=== PATIENT | male | born 1930 | race Caucasian/White ===

== ENCOUNTER 2017-12-31 17:39 | Emergency (ER) | payer OTHER ==
[~2017-12-31] VITALS: Ht 185.4 cm; Wt 98.0 kg
[~2017-12-31 17:39] MED LIST: ADULT LOW DOSE81 MG PO; ALBUTEROL2.5 MG/0.5 INH; ALBUTEROL2.5 MG/3 M INH; ALDACTONE25 MG; ALDACTONE25 MG PO; ANTIVERT25 MG PO; ASPIRIN325 PO; AUGMENTIN 875875 MG PO; AZITHROMYCIN 2250 MG PO; BACTRIM DS TAB1 EACH PO; BAYER CHEWABLE81 MG PO; CALCIUM; CALCIUM OYS SH1 EACH PO; CALCIUM OYSTER500 MG PO; CARVEDILOL6.25 MG; CITRATE OF MAG296 ML PO; CLARINEX5 MG PO; CLEOCIN HCL150 MG PO; COREG PO; DUONEB 2.5-0.5 M3 ML INH; FEVERALL650 MG RECTAL; FLONASE 0.05%50 MCG NS; FLONASE16 GM IH; HYDROCODON-ACE1 EAC7 PO; HYDROCODONE-AP1 EAC6 PO; K-TAB10 MEQ PO; KEFLEX500 MG PO; KLOR-CON 1010 MEQ PO; LASIX 20 MG TAB20 MG PO; LEVAQUIN 250 M250 MG PO; LEVOTHYROXINE0.05 MG PO; LIPITOR10 MG PO; LISINOPRIL2.5 MG PO; LISINOPRIL5 MG PO; MEDROLDOSEPACK PO; MIRALAX17 GM PO; OMEPRAZOLE40 MG PO; OYSCO-500500 MG PO; PERIDEX15 ML MM; PERIOGARD473 ML; PERIOGARD473 ML PO; PREDNISONE 10 M10 MG PO; PREDNISONE 20 M20 M1 PO; PRILOSEC40 MG PO; PROAIR HFA8.5 GM INH; PROSCAR 5MG TABL5 MG PO; PROVENTIL HFA6.7 G1 INH; SIMVASTATIN40 MG PO; SINGULAIR 10 MG10 M1 PO; TEGRETOL XR200 MG PO; TEGRETOL200 MG; TESSALON PERLE100 MG PO; TOPROL XL25 MG PO; TUMS PO; TUSSIONEX PENNKI1 ML PO; TYLENOL325 MG PO; ZOCOR; ZOCOR 20 MG TAB20 M1 PO; ZOCOR20 MG PO; ZOFRAN ODT4 MG PO; [UNRECOGNIZED DRUG - REMARK]
[2017-12-31 18:14] LABS: ABSOLUTE BASOPHILS 0.1 thou/uL (0.0-0.2); ABSOLUTE EOSINOPHILS 0.1 thou/uL (0.0-0.7); ABSOLUTE LYMPHOCYTES 2.1 thou/uL (0.8-5.3); ABSOLUTE MONOCYTES 0.5 thou/uL (0.0-1.2); ABSOLUTE NEUTROPHILS 6.4 thou/uL (1.6-8.1); BASOPHILS 1.5 %; EOSINOPHILS 1.1 %; HEMATOCRIT 40.4 % (42.0-52.0); HEMOGLOBIN 13.9 gm/dL (14.0-18.0); LYMPHOCYTES 22.3 %; MCH 31.9 pg (26.0-34.0); MCHC 34.4 g/dL (28.0-37.0); MCV 92.6 fL (80.0-100.0); MONOCYTES 5.8 %; MPV 7.7 fl. (7.2-11.1); NUCLEATED RBCS 0 /100WBC; PLATELET COUNT* 232 thou/uL (150-400); POLYS 69.3 %; RBC 4.36 mil/uL (4.50-6.00); RDW-CV 12.9 % (10.5-14.5); WBC 9.3 thou/uL (4.0-11.0)
[2017-12-31 18:31] LABS: APTT 26.8 Seconds (25.0-31.3); PROTIME 10.1 Seconds (9.20-11.50)
[2017-12-31 18:32] LABS: ANION GAP 8 mmol/L (7-16); BUN 17 mg/dL (7-18); CALCIUM 8.5 mg/dL (8.5-10.1); CHLORIDE 103 mmol/L (98-107); CO2 30 mmol/L (21-32); CREATININE 1.7 mg/dL (0.6-1.3); GLUCOSE 147 mg/dL (70-99); POTASSIUM 3.9 mmol/L (3.5-5.1); SODIUM 141 mmol/L (136-145)
[2017-12-31 18:42] LABS: ALBUMIN 3.6 g/dL (3.4-5.0); ALKALINE PHOSPHATASE 177 U/L (46-116); NT-PRO BRAIN NAT PEPTIDE 184 pg/mL (<300); SGOT 17 U/L (15-37); SGPT 18 U/L (30-65); TOTAL BILIRUBIN 0.4 mg/dL (<0.1-1.0); TOTAL PROTEIN 7.5 g/dL (6.4-8.2); TROPONIN-I LEVEL <0.06 ng/mL (<0.06)
[2017-12-31] MEDS ORDERED: ZOFRAN ODT4 MG PO (19:51)
[2017-12-31] MEDS ORDERED: HYDROCODONE-AP1 EAC6 PO (19:53)
[2017-12-31 20:34] VITALS: BP 114/55
--- NOTE | 2018-01-01 14:39 | EKG ---
[place] [address] ELECTROCARDIOGRAM REPORT Name: LARAREBECCA Poole [id number] Admission: 12/31/17 Attend Phys: Discharge: 12/31/17 Date of : 30 Report #: [id number] THIS REPORT FOR: //name// [facility] ED Test Date: 2017-12-31 Test Time: 17:46:16 Pat Name: REBECCA BERMUDEZ Department: Room: Gender: M Modeling Director: Mindi NAJERA : 1930 Requested By: Jakub Sepulveda Order Number: [id number] MD: Jasbir Sanchez Measurements Intervals [place] Rate: 66 P: 59 DC: 204 QRS: 8 QRSD: 167 T: 141 QT: 425 QTc: 446 Interpretive Statements Sinus rhythm Left bundle branch block Compared to ECG 05/05/2017 12:51:40 No significant changes Electronically Signed On 01-01-2018 14:38:54 CNP by Jasbir Sanchez [email or web address] <ELECTRONICALLY SIGNED> By: Jasbir Sanchez MD, [facility] 01/01/18 1438 1746 174 Jasbir Sanchez MD, FACC /EPI
== END 2017-12-31 20:35 | disposition home or self-care (01) ==
LOC: M.ERS 17:39
PROVIDERS: Family Medicine
DX: R07.81 Pleurodynia (principal); K21.9 Gastro-esophageal reflux disease without esophagitis; I25.10 Atherosclerotic heart disease of native coronary artery without angina pectoris; I50.9 Heart failure, unspecified; Z90.49 Acquired absence of other specified parts of digestive tract; Z98.890 Other specified postprocedural states; Z87.891 Personal history of nicotine dependence

== ENCOUNTER 2018-01-25 07:42 | Inpatient (IN) | payer OTHER ==
[~2018-01-25] VITALS: Ht 182.9 cm; Wt 98.0 kg
[2018-01-25 07:44] VITALS: BP 132/66
[2018-01-25] MEDS ORDERED: TOLTERODINE TART2 M1 PO (07:51)
[2018-01-25 08:28] LABS: ANION GAP 10 mmol/L (7-16); APTT 23.3 Seconds (25.0-31.3); BUN 22 mg/dL (7-18); CALCIUM 8.1 mg/dL (8.5-10.1); CHLORIDE 106 mmol/L (98-107); CO2 24 mmol/L (21-32); CREATININE 1.7 mg/dL (0.6-1.3); GLUCOSE 122 mg/dL (70-99); INR 1.1; PROTIME 10.7 Seconds (9.20-11.50); SODIUM 140 mmol/L (136-145)
[2018-01-25 08:38] LABS: INFLUENZA A ANTIGEN None Detected (None Detect); INFLUENZA B ANTIGEN None Detected (None Detect)
[2018-01-25 08:39] LABS: ALBUMIN 3.1 g/dL (3.4-5.0); ALKALINE PHOSPHATASE 161 U/L (46-116); NT-PRO BRAIN NAT PEPTIDE 192 pg/mL (<300); POTASSIUM 4.1 mmol/L (3.5-5.1); SGOT 27 U/L (15-37); SGPT 18 U/L (30-65); TOTAL BILIRUBIN 0.5 mg/dL (<0.1-1.0); TOTAL PROTEIN 6.8 g/dL (6.4-8.2); TROPONIN-I LEVEL <0.06 ng/mL (<0.06)
[2018-01-25 08:46] LABS: HEMATOCRIT 37.4 % (42.0-52.0); HEMOGLOBIN 12.8 gm/dL (14.0-18.0); MCH 31.3 pg (26.0-34.0); MCHC 34.1 g/dL (28.0-37.0); MPV 8.2 fl. (7.2-11.1); NUCLEATED RBCS 0 /100WBC; PLATELET COUNT* 211 thou/uL (150-400); RBC 4.07 mil/uL (4.50-6.00); RDW-CV 12.2 % (10.5-14.5); WBC 13.1 thou/uL (4.0-11.0)
[2018-01-25 08:47] LABS: URINE BILIRUBIN NEGATIVE (Negative); URINE BLOOD 2+ (Negative); URINE CLARITY CLEAR; URINE COLOR YELLOW; URINE GLUCOSE-RANDOM NEGATIVE (Negative); URINE KETONES NEGATIVE (Negative); URINE LEUKOCYTES-REFLEX NEGATIVE (Negative); URINE NITRITE-REFLEX NEGATIVE (Negative); URINE PROTEIN NEGATIVE (Negative); URINE UROBILINOGEN 0.2 E.U./dl (0.2-1.0)
[2018-01-25 08:57] LABS: BACTERIA-REFLEX None Seen /HPF (None Seen); CRYSTALS None Seen /LPF (None Seen); HYALINE CASTS 0-3 Few /LPF (None Seen); MUCUS 4-6 Moderate strn/LPF (None Seen); SQUAMOUS 0-3 Few /LPF (0-3); URINE RBC 0-2 Rare /HPF (0-2); URINE WBC-REFLEX 0-5 Rare /HPF (0-5)
[2018-01-25 09:07] LABS: ABSOLUTE LYMPHOCYTES 0.9 thou/uL (0.8-5.3); ABSOLUTE MONOCYTES 0.5 thou/uL (0.0-1.2); ABSOLUTE NEUTROPHILS 11.7 thou/uL (1.6-8.1); PLATELET ESTIMATE ADEQUATE
[2018-01-25 12:48] VITALS: BP 123/64
[2018-01-25 13:05] VITALS: BP 122/64
[2018-01-25 15:57] VITALS: BP 112/52
--- NOTE | 2018-01-25 18:41 | NUR ---
PATIENT ARRIVED FROM ER THIS AFTERNOON. PATIENT SETTLED O ROOM. HISTORY, ASSESSMENT AND VITALS COMPLETED AND DOCUMENTED. PATIENT HAD COMPLAINTS OF MILD LEFT LUNG PAIN WITH DEEP BREATHING, DENIES NEED FOR MEDICATION. PATIENT IS RECEIVING BREATHING TREATMENTS AND IV STERIODS. PATIENT IS UP STANDBY TO USE URINAL. PATIENT IS TACHY WITH URINAL USAGE. PATIENT HAS EXCELLENT APPETITE. PATIENT IS ALERT AND ORIENTED. PATIENT DENIES ANY NEEDS AT THIS TIME. CALL LIGHT WITHIN REACH. WILL CONTINUE TO MONITOR.
[2018-01-25 20:00] VITALS: BP 111/55
[2018-01-26] VITALS: BP 168/54
[2018-01-26 04:00] VITALS: BP 110/59
--- NOTE | 2018-01-26 04:59 | NUR ---
ASSUMED CARE OF PATIENT AT 1900 THE PATIENT REMAINS SR WITH A BBB ON THE MONITOR O2 SAT IS MAINTAINED ON RA CONTINUES TO BE UP WITH ASSIST OF 1 DURING NIGHT UTILIZED URINAL FOR VOIDING NEEDS THE ROUTINE REGIMEN CONTINUES TO BE EFFECTIVE FOR SX MANAGEMENT PATIENT PROGRESSING TOWARDS GOALS NIGHT UNEVENTFUL SAFETY INTERVENTIONS CONTINUE BED LOWERED WHEELS LOCKED CALL LIGHT IN REACH SIDE RAILS UP REPORT TO BE GIVEN TO ONCANNALISE WARE
[2018-01-26 08:00] VITALS: BP 123/67
[2018-01-26 10:18] LABS: ABSOLUTE BASOPHILS 0.1 thou/uL (0.0-0.2); ABSOLUTE LYMPHOCYTES 0.8 thou/uL (0.8-5.3); ABSOLUTE MONOCYTES 0.3 thou/uL (0.0-1.2); ABSOLUTE NEUTROPHILS 18.5 thou/uL (1.6-8.1); BASOPHILS 0.5 %; HEMATOCRIT 36.4 % (42.0-52.0); HEMOGLOBIN 12.1 gm/dL (14.0-18.0); LYMPHOCYTES 4.1 %; MCH 31.3 pg (26.0-34.0); MCHC 33.3 g/dL (28.0-37.0); MCV 93.9 fL (80.0-100.0); MONOCYTES 1.5 %; MPV 7.5 fl. (7.2-11.1); NUCLEATED RBCS 0 /100WBC; PLATELET COUNT* 234 thou/uL (150-400); POLYS 93.9 %; RBC 3.87 mil/uL (4.50-6.00); RDW-CV 12.7 % (10.5-14.5); WBC 19.7 thou/uL (4.0-11.0)
--- NOTE | 2018-01-26 10:44 | NUR ---
CM SPOKE TO THE PATIENT TO DISCUSS HOME SITUATION, DISCHARGE PLANNING, AND TO INFORM OF THE ROLE OF CM. PATIENT ALERT, BUT FORGEFUL. PATIENT RESIDES AT HOME WITH . PATIENT ASSIST WITH LITE CHORES. PATIENT OWNS A WALKER AND CANE AND USES ONE OR THE OTHER FOR MOBILITY. PATIENT HAS NO HX OF HH OR SNF. PATIENT PLANS TO RETURN HOME AT D/C. CM WILL REMAIN AVAILABLE TO ASSIST AND FOLLOW NEEDED.
--- NOTE | 2018-01-26 11:28 | NUR ---
ASSUMED RESPONSIBILITY OF PT THIS AM PT IS ALERT AND ORIENTED BUT FORGETFUL WITH TIME MOSTLY PT IS NSR TO ST ON THE MONITOR IV TO LFA RUNNING IV ANTIBIOTICS PT IS ON RA LS DIMINISHED WITH EXP WHEEZING AT TIMES PT IS SBA TO BSC PLAN TO DC TOMORROW AFTER LABS AND ANOTHER F/U CXR PT DENIES ANY PAIN CALL LIGHT IN REACH AND USES APPROPRIATELY
[2018-01-26 12:00] VITALS: BP 104/56
[2018-01-26 16:00] VITALS: BP 115/61
--- NOTE | 2018-01-26 16:59 | EKG ---
[place] [address] ELECTROCARDIOGRAM REPORT Name: REBECCA BERMUDEZ Room: [address] ADM IN [facility].#: [id number] Admission: 01/25/18 Attend Phys: Gustavo Dixon, Discharge: Date of : 30 Report #: [id number] THIS REPORT FOR: //name// [facility] ED Test Date: 2018-01-25 Test Time: 07:49:54 Pat Name: REBECCA ELLISRIES Department: Room: [facility] Gender: M Assembler Fluorescent Lights: : 1930 Requested By: Jakub Sepulveda Order Number: [id number] MD: William Diggs Measurements Intervals [place] Rate: 91 P: 68 GA: 213 QRS: -16 QRSD: 161 T: 129 QT: 397 QTc: 489 Interpretive Statements Sinus rhythm Borderline prolonged GA interval Left bundle branch block Compared to ECG 12/31/2017 17:46:16 No significant changes Electronically Signed On 01-26-2018 16:59:14 EXTERNAL AUDITOR by William Diggs [email or web address] <ELECTRONICALLY SIGNED> By: William Diggs MD, [facility] 01/26/18 1659 0749 William Diggs MD, [facility] /EPI
--- NOTE | 2018-01-26 17:00 | NUR ---
I have reviewed the documentation by CONRAD ANDERSEN from 01/26/18 to 01/26/18 and I concur with it. ALEKSANDR GARZA
[2018-01-26 20:00] VITALS: BP 124/65
[2018-01-27 00:23] VITALS: BP 127/58
[2018-01-27 04:33] VITALS: BP 126/70
[2018-01-27 04:54] LABS: ABSOLUTE LYMPHOCYTES 2.5 thou/uL (0.8-5.3); ABSOLUTE MONOCYTES 0.8 thou/uL (0.0-1.2); ABSOLUTE NEUTROPHILS 8.7 thou/uL (1.6-8.1); BASOPHILS 0.3 %; EOSINOPHILS 0.3 %; HEMATOCRIT 31.1 % (42.0-52.0); HEMOGLOBIN 10.7 gm/dL (14.0-18.0); LYMPHOCYTES 20.4 %; MCH 31.7 pg (26.0-34.0); MCHC 34.5 g/dL (28.0-37.0); MCV 91.9 fL (80.0-100.0); MONOCYTES 6.5 %; MPV 7.8 fl. (7.2-11.1); NUCLEATED RBCS 0 /100WBC; PLATELET COUNT* 203 thou/uL (150-400); POLYS 72.5 %; RBC 3.38 mil/uL (4.50-6.00); RDW-CV 12.8 % (10.5-14.5)
[2018-01-27 05:04] LABS: ALBUMIN 2.6 g/dL (3.4-5.0); CREATININE 1.5 mg/dL (0.6-1.3); POTASSIUM 3.8 mmol/L (3.5-5.1); TOTAL BILIRUBIN 0.3 mg/dL (<0.1-1.0); TOTAL PROTEIN 5.7 g/dL (6.4-8.2)
--- NOTE | 2018-01-27 05:31 | NUR ---
PT CARE ASSUMED AFTER REPORT. ASSESSMENT COMPLETE. SR/1ST DEGREE ON MONITOR. DENIES PAIN. FALL PRECAUTIONS IN PLACE INCLUDING BED ALARM. CALL LIGHT IN REACH. BED IN LOWEST POSITION. PROGRESSING TOWARDS GOALS.
[2018-01-27 08:00] VITALS: BP 117/61
[2018-01-27] MEDS ORDERED: CEFPODOXIME PR200 M1 PO (10:44)
[2018-01-27 10:45] VITALS: BP 117/61
--- NOTE | 2018-01-27 12:52 | NUR ---
PT TO BE DISCHARGED HOME WITH SCRIPT FOR ANTIBIOTIC FOR 7 DAYS PT WITHOUT COMPLAINTS UP AD MARIANELA SOA NOTED AND TREMORS NOTED TOO LABS HAVE IMPROVED DTR TO COME PICK PT UP IV DISCONTINUED AND WAITER/WAITRESS ROOM SERVICE
== END 2018-01-27 13:22 | disposition home or self-care (01) | DRG 177 ==
LOC: M.ERS 07:42 → M.2W 09:19 → M.TBA-ER 09:19 → M.2W 13:04
PROVIDERS: Family Medicine; Internal Medicine; ADMIT Family Medicine
DX: J15.6 Pneumonia due to other Gram-negative bacteria (principal); J96.01 Acute respiratory failure with hypoxia; J44.1 Chronic obstructive pulmonary disease with (acute) exacerbation; J44.0 Chronic obstructive pulmonary disease with (acute) lower respiratory infection; N39.0 Urinary tract infection, site not specified; R65.10 Systemic inflammatory response syndrome (SIRS) of non-infectious origin without acute organ dysfunction; N17.9 Acute kidney failure, unspecified; E44.1 Mild protein-calorie malnutrition; N18.3 Chronic kidney disease, stage 3 (moderate); K21.9 Gastro-esophageal reflux disease without esophagitis; R31.9 Hematuria, unspecified; I25.10 Atherosclerotic heart disease of native coronary artery without angina pectoris; I50.9 Heart failure, unspecified; Z90.49 Acquired absence of other specified parts of digestive tract; Z79.899 Other long term (current) drug therapy; Z79.82 Long term (current) use of aspirin; Z87.891 Personal history of nicotine dependence; Z86.73 Personal history of transient ischemic attack (TIA), and cerebral infarction without residual deficits

== ENCOUNTER 2018-01-30 04:14 | Inpatient (IN) | payer OTHER ==
[2018-01-30] VITALS (7 sets, daily range): BP systolic 101–141; BP diastolic 51–84
[~2018-01-30] VITALS: Ht 188 cm; Wt 94.3 kg
[~2018-01-30 04:14] MED LIST changes: +CEFPODOXIME PR200 M1 PO; +TOLTERODINE TART2 M1 PO
[2018-01-30 04:36] LABS: ABSOLUTE BASOPHILS 0.1 thou/uL (0.0-0.2); ABSOLUTE EOSINOPHILS 0.1 thou/uL (0.0-0.7); ABSOLUTE LYMPHOCYTES 1.4 thou/uL (0.8-5.3); ABSOLUTE MONOCYTES 0.5 thou/uL (0.0-1.2); ABSOLUTE NEUTROPHILS 5.9 thou/uL (1.6-8.1); EOSINOPHILS 1.1 %; HEMATOCRIT 36.8 % (42.0-52.0); HEMOGLOBIN 12.8 gm/dL (14.0-18.0); LYMPHOCYTES 17.7 %; MCHC 34.7 g/dL (28.0-37.0); MCV 92.1 fL (80.0-100.0); MONOCYTES 6.9 %; MPV 7.1 fl. (7.2-11.1); NUCLEATED RBCS 0 /100WBC; PLATELET COUNT* 214 thou/uL (150-400); POLYS 73.3 %; RDW-CV 12.5 % (10.5-14.5)
[2018-01-30 04:42] LABS: BE -1.2 mmol/L (-2 to +3); HCO3 21.8 mmol/L (22.0-26.0); PCO2 31.3 mmHg (35.0-45.0); PO2 87.5 mmHg (75.0-100.0)
[2018-01-30 04:43] LABS: CALCIUM 8.1 mg/dL (8.5-10.1); CREATININE 1.7 mg/dL (0.6-1.3); POTASSIUM 4.1 mmol/L (3.5-5.1)
[2018-01-30 04:46] LABS: APTT 29.3 Seconds (25.0-31.3); INR 1.1; PROTIME 10.7 Seconds (9.20-11.50)
[2018-01-30 04:54] LABS: ALBUMIN 3.2 g/dL (3.4-5.0); TOTAL BILIRUBIN 0.5 mg/dL (<0.1-1.0); TOTAL PROTEIN 7.1 g/dL (6.4-8.2); TROPONIN-I LEVEL 0.16 ng/mL (<0.06)
--- NOTE | 2018-01-30 07:00 | NUR ---
RECEIVED REPORT FROM ER. PT SLEEPING SOUNDLY, AWAKENS BUT IMMEDIATELY BACK TO SLEEP. HX OBTAINED FROM PREVIOUS ADMISSION 01/25/18. TELEMETRY APPLIED SHOWING SR. PT IS DIAPHORETIC, TEMP DOWN TO 98.5. O2 ON AT 2L/NC, HAVING OCC MOIST NON PROD COUGH. BUTTOCKS RED FROM LAYING ON ER CART, BLANCHES WELL. REPORT GIVEN TO NEXT SHIFT
[2018-01-30 07:25] LABS: INFLUENZA B ANTIGEN None Detected (None Detect)
--- NOTE | 2018-01-30 16:04 | NUR ---
Pt sound asleep, will assess tomorrow.
--- NOTE | 2018-01-30 16:50 | 2DMMODE ---
[place] [address] 2 D/M-MODE ECHOCARDIOGRAM Name: REBECCA BERMUDEZ Room: [address] IN [facility]#: [id number] Admission: 01/30/18 Attend Phys: Neno Chavez, Discharge: Date of : 30 Date of Service: 01/30/18 1649 Report #: [id number] THIS REPORT FOR: //name// APPROVED REPORT Study performed: 01/30/2018 13:02:28 EXAM: Comprehensive 2D, Doppler, and color-flow Echocardiogram Patient Location: In-Patient Room #: [facility] Status: routine BSA: 2.21 HR: 79 bpm BP: 109/57 mmHg Rhythm: NSR Other Information Study Quality: Good Indications Elevated Troponin 2D Dimensions LVEF(%): 60.21 (>50%) IVSd: 14.85 (7-11mm) LVOT Diam: 21.54 (18-24mm) LVDd: 55.31 mm PWd: 11.93 (7-11mm) Ascending Ao: 35.28 (22-36mm) LVDs: 37.34 (25-40mm) Aortic Root: 34.41 mm Kwong's LVEF: 60.21 % Volumes Left Atrial Volume (Systole) LA ESV Index: 27.30 mL/m2 Aortic Valve AoV Peak Chip.: 1.71 m/s AO Peak Gr.: 11.71 mmHg LVOT Max P.74 mmHg AO Mean Gr.: 6.58 mmHg LVOT Mean P.07 mmHg LVOT Max V: 1.20 m/s AO V2 VTI: 31.69 cm LVOT Mean V: 0.82 m/s MARY ALICE (VTI): 2.59 cm2 LVOT V1 VTI: 22.56 cm Mitral Valve E/A Ratio: 0.74 [place] [address] 2 D/M-MODE ECHOCARDIOGRAM Name: REBECCA BERMUDEZ Room: [address] IN [facility]#: [id number] Admission: 01/30/18 Attend Phys: Neno Chavez, Discharge: Date of : 30 Date of Service: 01/30/18 1649 Report #: [id number] MV Decel. Time: 245.11 ms MV E Max Chip.: 0.59 m/s MV PHT: 71.08 ms MVA (PHT): 3.09 cm2 TDI E/Lateral E': 7.38 E/Medial E': 5.90 Medial E' Chip.: 0.10 m/s Lateral E' Chip.: 0.08 m/s Pulmonary Valve PV Peak Chip.: 1.17 m/s PV Peak Gr.: 5.47 mmHg Tricuspid Valve TR Peak Gr.: 26.98 mmHg RVSP: 32.00 mmHg Left Ventricle The left ventricle is normal size. There is normal LV segmental wall motion. There is normal left ventricular wall thickness. Left ventricular systolic function is normal. The left ventricular ejection fraction is within the normal range. LVEF is 60%. Grade I - abnormal relaxation pattern. Right Ventricle The right ventricle is normal size. The right ventricular systolic function is normal. Atria The left atrium size is normal. The right atrium size is normal. Aortic Valve Mild aortic valve sclerosis. No aortic regurgitation is present. There is no aortic valvular stenosis. Mitral Valve The mitral valve is normal in structure. Trace mitral regurgitation. No evidence of mitral valve stenosis. Tricuspid Valve The tricuspid valve is normal in structure. Mild tricuspid regurgitation. The RVSP is 30-35 mmHg. Pulmonic Valve The pulmonary valve is normal in structure. There is no pulmonic [place] [address] 2 D/M-MODE ECHOCARDIOGRAM Name: REBECCA BERMUDEZ Room: [address]#: [id number] Admission: 01/30/18 Attend Phys: Neno Chavez, Discharge: Date of : 30 Date of Service: 01/30/18 1649 Report #: [id number] Great Vessels The aortic root is normal in size. IVC is normal in size and collapses with >50% inspiration Pericardium There is no pericardial effusion. <Conclusion> The left ventricle is normal size. There is normal left ventricular wall thickness. Left ventricular systolic function is normal. The left ventricular ejection fraction is within the normal range. LVEF is 60%. Grade I - abnormal relaxation pattern. The right ventricle is normal size. The left atrium size is normal. Mild aortic valve sclerosis. No aortic regurgitation is present. There is no aortic valvular stenosis. The mitral valve is normal in structure. Trace mitral regurgitation. The tricuspid valve is normal in structure. Mild tricuspid regurgitation. The RVSP is 30-35 mmHg. IVC is normal in size and collapses with >50% inspiration There is no pericardial effusion. There is normal LV segmental wall motion. <ELECTRONICALLY SIGNED> By: William Diggs MD, FACC 01/30/18 1649 48 48 William Diggs MD, FACC /INF
--- NOTE | 2018-01-30 17:27 | EKG ---
[place] [address] ELECTROCARDIOGRAM REPORT Name: REBECCA BERMUDEZ Room: [address] ADM IN M.R.#: [id number] Admission: 01/30/18 Attend Phys: Neno Chavez MD Discharge: Date of : 30 Report #: [id number] THIS REPORT FOR: //name// [facility] Test Date: 2018-01-30 Test Time: 09:19:54 Pat Name: REBECCA BERMUDEZ Department: Room: [address] Gender: M Recreation Center Director: KYLE : 1930 Requested By: Jakub Sepulveda Order Number: [id number] Sandra MD: William Diggs Measurements Intervals [place] Rate: 72 P: 65 [place]: 198 QRS: -18 QRSD: 168 T: 147 QT: 439 QTc: 481 Interpretive Statements Sinus rhythm Left bundle branch block Compared to ECG 01/25/2018 07:49:54 No significant changes Electronically Signed On 01-30-2018 17:27:31 AIR QUALITY ENGINEER by William Diggs [email or web address] <ELECTRONICALLY SIGNED> By: William Diggs MD, [facility] 01/30/18 1727 8 8 William Diggs MD, [facility] /EPI
--- NOTE | 2018-01-30 17:27 | EKG ---
[place] [address] ELECTROCARDIOGRAM REPORT Name: REBECCA BERMUDEZ Room: [address] ADM IN .R.#: [id number] Admission: 01/30/18 Attend Phys: Neno Chavez MD Discharge: Date of : 30 Report #: [id number] THIS REPORT FOR: //name// [facility] ED Test Date: 2018-01-30 Test Time: 04:19:04 Pat Name: REBECCA BERMUDEZ Department: Room: [facility] Gender: M Powder Hand: 9 : 1930 Requested By: Jakub Sepulveda Order Number: [id number] MD: William Diggs Measurements Intervals [place] Rate: 105 P: 78 NE: 176 QRS: 42 QRSD: 158 T: 154 QT: 358 QTc: 474 Interpretive Statements Sinus tachycardia IVCD, consider atypical LBBB Electronically Signed On 01-30-2018 17:26:57 FOOD STAND MANAGER by William Diggs [email or web address] <ELECTRONICALLY SIGNED> By: William Diggs MD, [facility] 01/30/18 1726 0419 0419 William Diggs MD, FACC /EPI
--- NOTE | 2018-01-30 17:31 | EKG ---
[place] [address] ELECTROCARDIOGRAM REPORT Name: REBECCA BERMUDEZ Room: [address] ADM IN M.R.#: [id number] Admission: 01/30/18 Attend Phys: Neno Chavez MD Discharge: Date of : 30 Report #: [id number] THIS REPORT FOR: //name// [facility] Test Date: 2018-01-30 Test Time: 17:06:42 Pat Name: REBECCA BERMUDEZ Department: Room: [address] Gender: M Water Quality Tester: [facility] : 1930 Requested By: Jakub Sepulveda Order Number: [id number] Sandra MD: William Diggs Measurements Intervals [place] Rate: 82 P: [place]: QRS: -4 QRSD: 174 T: 189 QT: 424 QTc: 496 Interpretive Statements Sinus rhythm at a normal rate Left bundle branch block Electronically Signed On 01-30-2018 17:30:49 LUBRICATION WORKER by William Diggs [email or web address] <ELECTRONICALLY SIGNED> By: William Diggs MD, [facility] 01/30/18 1730 1706 1706 William Diggs MD, FACC /EPI
--- NOTE | 2018-01-30 19:05 | NUR ---
ASSUMED CARE OF PT AT 0730. PT CONTINUES TO BE A&O X4 AND COOPERATIVE. PT VSS AND TRACING NSR ON THE MONITOR. PT DENIES ANY C/O PAIN OR DISTRESS AND HAS BEEN EATING AND DRINKING THROUGH THE DAY EATING GREATER THAN 75% IF MEALS. PT CONTINUES TO HAVE A NONPRODUCTIVE COUGH. PT AMBULATES WITH 1 ASSIST IN ROOM AND VOIDS VIA URINAL. NURSING WILL CONTINUE TO MONITOR.
--- NOTE | 2018-01-30 20:00 | NUR ---
RECEIVED REPORT AND ASSUMED CARE OF PT, ASSESSMENT COMPLETED. HAVING AN OCC MOIST NON-PROD COUGH, HOB ELEVATED, O2 ON AT 1L/NC. VOIDING PER URINAL WITHOUT DIFFICULTY. TELEMETRY ON SHOWING SR WITH BBB. WILL CONT TO MONITOR AND ASSIST NEEDED.
[2018-01-31 00:12] VITALS: BP 101/66
[2018-01-31 04:12] VITALS: BP 123/61
[2018-01-31 04:44] LABS: HEMATOCRIT 32.7 % (42.0-52.0); HEMOGLOBIN 11.5 gm/dL (14.0-18.0); MCH 31.9 pg (26.0-34.0); MCHC 35.1 g/dL (28.0-37.0); MCV 90.8 fL (80.0-100.0); MPV 7.5 fl. (7.2-11.1); RBC 3.6 mil/uL (4.50-6.00); RDW-CV 12.6 % (10.5-14.5); WBC 6.2 thou/uL (4.0-11.0)
[2018-01-31 05:04] LABS: CALCIUM 7.9 mg/dL (8.5-10.1); CREATININE 1.9 mg/dL (0.6-1.3); MAGNESIUM 2.1 mg/dL (1.8-2.4); POTASSIUM 3.8 mmol/L (3.5-5.1)
--- NOTE | 2018-01-31 07:07 | NUR ---
AWAKE OCC DURING NIGHT. ABD DISTENDED AND STATES HAVING DIFFICULTY WITH VOIDING. DISCUSSED LAXATIVES TODAY. HAVING OCC MOIST NON-PRODUCTIVE COUGH. NO CHANGE IN ASSESSMENT. ADVANCING TOWARDS GOALS. HOURLY ROUNDING OBSERVED.
[2018-01-31 08:15] VITALS: BP 122/69
[2018-01-31 16:00] VITALS: BP 99/56
--- NOTE | 2018-01-31 19:00 | NUR ---
ASSUMED CARE OF PT AT 0730. PT CONTINUES TO BE A&O X4 CALM AND COOPERATIVE BU FORGETFUL AT TIMES. HIS HR INCREASED TO THE 160'S TODAY AND CARDIOLOGY WAS RECONSULTED. CARDIOLOGY SAW PT AND EKG WAS PREFORMED. JAVA APPLICATION DEVELOPER ORDERE SOTALOL PO, AFTER ADMINISTRATION PT HR HAS BEEN IN THE 90'S TO LOW 100'S FOR THE REMAINDER OF THE SHIFT. PT HAS BEEN VOIDING VIA URINAL AND BP HAS BEEN STABLE. PT C/O "FEELING BAD" AND HAS VERY WET AND COARSE LUNG SOUNDS. PT HAS O2 AT 2L VIA NC AND SATS HAVE MAINTAINED GREATER THAN 95% TODAY. PT REFUSED DINNER AND LUNCH. ADEQUATE FLUID INTAKE HAS BEEN ENCOURAGED AND THE PT HAS BEEN OFFERED A VARIETY OF FOODS AND DRINKS THROUGH THE SHIFT. PT CURRENTLY RESTING IN BED WATCHING TVE WITH HOB ELEVATED TO 80% AND HE HAS HAD NO C/O PAIN.
[2018-01-31 21:04] VITALS: BP 106/55
[2018-02-01] VITALS (24 sets, daily range): BP systolic 75–114; BP diastolic 43–71
[2018-02-01 05:00] LABS: BE -2.6 mmol/L (-2 to +3); HCO3 20.2 mmol/L (22.0-26.0); PCO2 29.5 mmHg (35.0-45.0); pH 7.453 (7.340-7.450)
[2018-02-01 05:01] LABS: PO2 59.9 mmHg (75.0-100.0)
[2018-02-01 05:22] LABS: HEMOGLOBIN 13.2 gm/dL (14.0-18.0); MCH 31.5 pg (26.0-34.0); MCHC 33.9 g/dL (28.0-37.0); MCV 92.9 fL (80.0-100.0); MPV 7.7 fl. (7.2-11.1); NUCLEATED RBCS 0 /100WBC; PLATELET COUNT* 222 thou/uL (150-400); RDW-CV 13.2 % (10.5-14.5); WBC 9.7 thou/uL (4.0-11.0)
[2018-02-01 05:29] LABS: CREATININE 1.9 mg/dL (0.6-1.3); MAGNESIUM 2.3 mg/dL (1.8-2.4); POTASSIUM 5.1 mmol/L (3.5-5.1)
[2018-02-01 06:03] LABS: BE -2.7 mmol/L (-2 to +3); HCO3 20.2 mmol/L (22.0-26.0); PCO2 30.2 mmHg (35.0-45.0); PO2 99.2 mmHg (75.0-100.0); pH 7.444 (7.340-7.450)
[2018-02-01 06:25] LABS: ABSOLUTE BASOPHILS 0.1 thou/uL (0.0-0.2); ABSOLUTE LYMPHOCYTES 0.8 thou/uL (0.8-5.3); ABSOLUTE MONOCYTES 0.6 thou/uL (0.0-1.2); ABSOLUTE NEUTROPHILS 8.2 thou/uL (1.6-8.1); PLATELET ESTIMATE ADEQUATE
--- NOTE | 2018-02-01 07:52 | NUR ---
Pt had been restful with VSS up until 0400 this morning. Pt found to be shivering, and having labored respirations. SaO2 86-93% on 2L. O2 increased to 6L per NC. ABGs revealed PO2 critically low; pt placed on NRB mask. SaO2 up to upper 90s on NRB. Pt continues to have labored resps, RR upper 30s. States that it "may be time to let me go." Dr. Dixon updated on pt's status, orders received. IVF and IV antibiotics initiated. Pt also continues to have distended and round abd, and no BM for at least a few days. Pt assisted to BSC to attempt BM, but no results. Pt weak, and disoriented at times. Pulls NRB off intermittently, stating it makes him hot. Updated pt's son this morning of pt's status. Son states he will tell his family and be up to visit later. Will continue to monitor.
[2018-02-01 11:21] LABS: BE -3.8 mmol/L (-2 to +3); HCO3 20.7 mmol/L (22.0-26.0); PCO2 35.7 mmHg (35.0-45.0); PO2 77.8 mmHg (75.0-100.0); pH 7.381 (7.340-7.450)
[2018-02-01 11:25] LABS: HEMATOCRIT 37.7 % (42.0-52.0); HEMOGLOBIN 12.7 gm/dL (14.0-18.0); MCH 31.2 pg (26.0-34.0); MCHC 33.8 g/dL (28.0-37.0); MCV 92.6 fL (80.0-100.0); MPV 7.8 fl. (7.2-11.1); RBC 4.08 mil/uL (4.50-6.00); RDW-CV 12.9 % (10.5-14.5); WBC 18.9 thou/uL (4.0-11.0)
[2018-02-01 11:39] LABS: ALBUMIN 2.9 g/dL (3.4-5.0); CALCIUM 7.9 mg/dL (8.5-10.1); CREATININE 2.3 mg/dL (0.6-1.3); TOTAL BILIRUBIN 0.5 mg/dL (<0.1-1.0)
--- NOTE | 2018-02-01 11:57 | NUR ---
1130 RECEIVED PER BED FROM TELEMETRY POST PHYSICAL SECURITY SPECIALIST CALL. SEE ASSESSMENT. FAMILY HERE AND WANT PATIENT TO BE COMFORTABLE
--- NOTE | 2018-02-01 12:06 | NUR ---
TEMPERATURE MEMBRENO IN PLACE. PT ROUSABLE NOW AND FAMILY PRESENT. FAMILY DOES NOT WANT CENTRAL LINE OR PRESSORS. WAITING FOR SPOUSE TO COME
--- NOTE | 2018-02-01 12:16 | NUR ---
SPOUSE AND FAMILY AT BEDSIDE
--- NOTE | 2018-02-01 12:22 | EKG ---
[place] [address] ELECTROCARDIOGRAM REPORT Name: REBECCA BERMUDEZ Room: [address] ADM IN M.R.#: [id number] Admission: 01/30/18 Attend Phys: Neno Chavez MD Discharge: Date of : 30 Report #: [id number] THIS REPORT FOR: //name// [facility] Test Date: 2018-01-31 Test Time: 10:01:24 Pat Name: REBECCA BERMUDEZ Department: Room: [facility] Gender: M Utility Operator: KF : 1930 Requested By: Kennedy Bowden Order Number: [id number] Sandra MD: Kennedy Bowden Measurements Intervals [place] Rate: 153 P: 0 CT: 124 QRS: -25 QRSD: 155 T: 171 QT: 312 QTc: 498 Interpretive Statements Atrial fibrillation with rapid ventricular response rate Left bundle-branch block Baseline wander in lead(s) II,III,aVF Compared to ECG 01/30/2018 17:06:42 Sinus rhythm no longer present Electronically Signed On 02-01-2018 12:22:15 HEAT SEAL OPERATOR by Kennedy Bowden [email or web address] <ELECTRONICALLY SIGNED> By: Kennedy Bowden MD, FACC 02/01/18 1222 1001 1001 Kennedy Bowden MD, [facility] /EPI
--- NOTE | 2018-02-01 12:28 | EKG ---
[place] [address] ELECTROCARDIOGRAM REPORT Name: REBECCA BERMUDEZ Room: [address] ADM IN .R.#: [id number] Admission: 01/30/18 Attend Phys: Neno Chavez MD Discharge: Date of : 30 Report #: [id number] THIS REPORT FOR: //name// [facility] Test Date: 2018-02-01 Test Time: 08:03:09 Pat Name: REBECCA BERMUDEZ Department: Room: [facility] Gender: M Graves Registration Specialist: 27 : 1930 Requested By: Kennedy Bowden Order Number: [id number] Sandra MD: Kennedy Bowden Measurements Intervals [place] Rate: 85 P: 82 [place]: 186 QRS: 12 QRSD: 153 T: 167 QT: 402 QTc: 478 Interpretive Statements Sinus rhythm Left bundle branch block Compared to ECG 01/30/2018 17:06:42 No significant changes Electronically Signed On 02-01-2018 12:28:17 PIERCER OPERATOR by Kennedy Bowden [email or web address] <ELECTRONICALLY SIGNED> By: Kennedy Bowden MD, [facility] 02/01/18 1228 D: [id number] 2 Kennedy Bowden MD, FACC /EPI
--- NOTE | 2018-02-01 12:30 | NUR ---
SPOUSE TO BEDSIDE. FAMILY REFUSES ACCUCHECKS. OXYGEN AT 10LPM HIGH FLOW WITH SAT OF 93%
--- NOTE | 2018-02-01 14:16 | NUR ---
CHEST FILM DONE. PT INCONTINENT OF LARGE STOOL
--- NOTE | 2018-02-01 16:12 | NUR ---
DR ROSA HERE TO SEE PATIENT. DR BENITO UPDATED ON PATIENT STATUS AND ORDERS NOTED
--- NOTE | 2018-02-01 17:08 | NUR ---
PATIENT CAME TO ICU POST SENIOR CHEMIST CALL FOR UNRESPONSIVENESS AND HYPOTENSION. PT IS DNR. PT AROUSABLE AND ORIENTED TO PERSON/SOMETIMES PLACE. STILL HAS SOME HYPOTENSION. SINUS LAVONNE WITH BBB. TEMPERATURE MEMBRENO PLACED. ID CONSULTED AND SAW PATIENT. PATIENT IS POSITIVE FOR FLU AND IN DROPLET PRECAUTIONS. SPOUSE NOW ALSO HAS THAT DIAGNOSIS AND DID VISIT PATIENT. DPOA AND SPOUSE DO NOT WANT PT RESUSCITATED AND DECLINED CENTRAL LINE AND PRESSORS. FAMILY ALSO REFUSED ACCUCHECKS. PRIOR PROBLEM WITH CONSTIPATION IS RESOLVED.
--- NOTE | 2018-02-01 18:14 | NUR ---
PATIENT DID NOT WANT TO EAT DINNER. VERY DROWSY AT THIS TIME. DAUGHTER PRESENT
[2018-02-02] VITALS (10 sets, daily range): BP systolic 84–131; BP diastolic 52–74
[2018-02-02 05:28] LABS: HEMATOCRIT 31.5 % (42.0-52.0); HEMOGLOBIN 11.1 gm/dL (14.0-18.0); MCH 32.1 pg (26.0-34.0); MCHC 35.1 g/dL (28.0-37.0); MCV 91.3 fL (80.0-100.0); MPV 7.7 fl. (7.2-11.1); RBC 3.45 mil/uL (4.50-6.00); WBC 9.7 thou/uL (4.0-11.0)
[2018-02-02 05:30] LABS: URINE BILIRUBIN NEGATIVE (Negative); URINE BLOOD 3+ (Negative); URINE CLARITY CLEAR; URINE COLOR YELLOW; URINE GLUCOSE-RANDOM NEGATIVE (Negative); URINE KETONES 1+ (Negative); URINE LEUKOCYTES-REFLEX NEGATIVE (Negative); URINE NITRITE-REFLEX NEGATIVE (Negative); URINE PROTEIN 1+ (Negative); URINE SPECIFIC GRAVITY 1.025 (1.005-1.030); URINE UROBILINOGEN 0.2 E.U./dl (0.2-1.0)
[2018-02-02 05:40] LABS: BACTERIA-REFLEX 1-9 Few /HPF (None Seen); MUCUS 4-6 Moderate strn/LPF (None Seen); SQUAMOUS 0-3 Few /LPF (0-3); URINE WBC-REFLEX 0-5 Rare /HPF (0-5)
[2018-02-02 05:41] LABS: CASTS None Seen /LPF (None Seen)
[2018-02-02 05:42] LABS: URIC ACID CRYSTALS 0-3 Few /LPF (None Seen)
[2018-02-02 05:46] LABS: CALCIUM 7.3 mg/dL (8.5-10.1); POTASSIUM 4.7 mmol/L (3.5-5.1)
--- NOTE | 2018-02-02 07:36 | NUR ---
PROGRESSING TOWARD GOALS. AT START OF SHIFT PT WAS MINIMALLY RESPONSIVE TO STIMULI, HOWEVER BY APPROXIMATELY 2200 PT WAS ALERT AND ORIENTED X4, CONVERSING APPROPRIATELY AND FOLLOWING COMMANDS. PT SLEPT WELL THROUGHT THE NIGHT. HE HAS DENIED CHEST PAIN, SOA, AND ANY OTHER DISCOMFORT. PERSISTENT DRY COUGH. VSS. PT HAD MODERATE LOOSE BM THIS AM VIA BEDPAN. IVF INFUSING ORDERED. CALL LIGHT WITHIN REACH.
--- NOTE | 2018-02-02 09:32 | NUR ---
PATIENT IS NOW TELE STATUS.
--- NOTE | 2018-02-02 10:19 | EKG ---
[place] [address] ELECTROCARDIOGRAM REPORT Name: REBECCA BERMUDEZ Room: [address] ADM IN .R.#: [id number] Admission: 01/30/18 Attend Phys: Neno Chavez MD Discharge: Date of : 30 Report #: [id number] THIS REPORT FOR: //name// [facility] Test Date: 2018-02-01 Test Time: 11:07:17 Pat Name: REBECCA BERMUDEZ Department: Room: [facility] Gender: M Glassie: UNK : 1930 Requested By: Juan Manuel Vargas Order Number: [id number] Sandra MD: Jasbir Sanchez Measurements Intervals [place] Rate: 67 P: 79 [place]: 194 QRS: -18 QRSD: 166 T: 174 QT: 475 QTc: 502 Interpretive Statements Sinus rhythm Left bundle branch block Compared to ECG 02/01/2018 08:03:09 No significant changes Electronically Signed On 02-02-2018 10:19:17 REGULATORY LEADER by Jasbir Sanchez [email or web address] <ELECTRONICALLY SIGNED> By: Jasbir Sanchez MD, [facility] 02/02/18 1019 06 06 Jasbir Sanchez MD, FACC /EPI
--- NOTE | 2018-02-02 10:29 | EKG ---
[place] [address] ELECTROCARDIOGRAM REPORT Name: REBECCA BERMUDEZ Room: [address] ADM IN .R.#: [id number] Admission: 01/30/18 Attend Phys: Neno Chavez MD Discharge: Date of : 30 Report #: [id number] THIS REPORT FOR: //name// [facility] Test Date: 2018-02-02 Test Time: 07:52:54 Pat Name: REBECCA BERMUDEZ Department: Room: [facility] Gender: M Customer Assistance Representative: [facility] : 1930 Requested By: Kenneyd Bowden Order Number: [id number] Sandra MD: Jasbir Sanchez Measurements Intervals [place] Rate: 55 P: 73 MD: 209 QRS: -3 QRSD: 169 T: 164 QT: 509 QTc: 487 Interpretive Statements Sinus rhythm Left bundle branch block Compared to ECG 02/01/2018 08:03:09 No significant changes Electronically Signed On 02-02-2018 10:29:12 SHIPPING SUPPORT by Jasbir Sanchez [email or web address] <ELECTRONICALLY SIGNED> By: Jasbir Sanchez MD, [facility] 02/02/18 1029 0752 075 Jasbir Sanchez MD, FACC /EPI
--- NOTE | 2018-02-02 10:42 | NUR ---
PT KNOWN TO CASE KELIN FROM PREVIOUS ADMISSION. PT HAS SOME FORGETFULLNESS, LIVES AT HOME WITH HIS . HE HELPS SOME WITH OPTICIAN APPRENTICE DISPENSING. HE HAS A CANE AND WALKER AT HOME IF NEEDED. NO FAMILY HERE AT THIS TIME, CASE KELIN WILL CONTINUE TO FOLLOW.
--- NOTE | 2018-02-02 14:12 | NUR ---
PATIENT GOING TO ROOM 211 WITH NURSING STAFF. BY WHEELCHAIR. CHART AND MEDICATIONS TAKEN WITH PATIENT.
--- NOTE | 2018-02-02 17:13 | NUR ---
PATIENT HAS PROGRESSED WELL TOWARDS GOALS. CATHETER D/C, SOME BLOODY DISCHARGE WHICH IS STARTING TO LIGHTEN UP WITH EACH URINATION. PATIENT HAS SUCCESSFULLY GOT UP TO COMMODE AND TRANSFERED TO WHEELCHAIR TODAY WITH STAND BY ASSIST. FAMILY HAS VISITED MULTIPLE TIMES TODAY. NO PAIN, NAUSEA OR SHORTNESS OF BREATH. WEANED DOWN TO 2 LITERS NASAL CANULA. BED IN LOWEST POSITION CALL LIGHT IN REACH, BED ALARM ON, FALL PREACUATIONS IN PLACE.
[2018-02-03 00:10] VITALS: BP 105/50
[2018-02-03 04:00] VITALS: BP 110/52
[2018-02-03 05:09] LABS: HEMATOCRIT 31.7 % (42.0-52.0); HEMOGLOBIN 11.2 gm/dL (14.0-18.0); MCH 31.7 pg (26.0-34.0); MCHC 35.2 g/dL (28.0-37.0); MCV 90.1 fL (80.0-100.0); MPV 7.8 fl. (7.2-11.1); RBC 3.52 mil/uL (4.50-6.00); RDW-CV 12.7 % (10.5-14.5); WBC 12.7 thou/uL (4.0-11.0)
--- NOTE | 2018-02-03 05:15 | NUR ---
PT IS ABLE TO COMMUNICATE HIS NEEDS TO STAFF WITH ONLY MINOR DIFFICULTY; HE IS VERY [id number]. HE HAS DENIED THE NEED FOR PAIN MEDICATION UP TO THIS TIME. DROPLET ISOLATION FOR POSITIVE FLU SWAB MAINTAINED. CODE STATUS IS DNR.
[2018-02-03 05:36] LABS: CALCIUM 7.2 mg/dL (8.5-10.1); CREATININE 1.8 mg/dL (0.6-1.3); POTASSIUM 4.6 mmol/L (3.5-5.1)
[2018-02-03 08:22] VITALS: BP 114/72
--- NOTE | 2018-02-03 10:14 | NUR ---
ASSUMED CARE OF PT THIS AM AROUND 0715- HOTEL OFFICE MANAGER IN PLACE ORDERED, TRACING SB WITH BBB- UPON ASSESSMENT PT NOTED TO BE RESTING IN BED, WATCHING TV- PT A&O X3 WITH FORGETFULLNESS, [place]- ASSIST X1 WITH TRANSFERS- CONTINENTN OF BOWEL AND BLADDER, STRESS INCONTINENTS NOTED- VSS, O2 SAT 92% ON 2L- COURSE LUNG SOUNDS, COUGHT NOTED WITH WHITE STICKY SUTUM REPORTED PE PT- ABDOMEN FIRM/ROUND/NON-TENDER, BS X4 QUADS- LAST BM REPORTED 02/02/18- TRACE EDEMA NOED TO BLE- DROPLET ISOLOATION IN PLACE AND MAINTAINED INDICATED R/T POSTIVE FLU- IV NOTED TO RIGHT FA AND LEFT AC INTACT AND SL- GOOD PO INTAKE NOTED THIS AM WITH BREAKFAST- PT DENIES ANY C/O PAIN/DISCOMFORT AT THIS TIME- CALL LIGHT AND PERSONAL BELONGINGS WITH IN REACH- HOURLY ROUNDS IN PLACE R/T SAFETY/NEEDS- ALL NEEDS MET AT THIS TIME-WCTM
[2018-02-03 11:15] VITALS: BP 136/78
--- NOTE | 2018-02-03 12:57 | EKG ---
[place] [address] ELECTROCARDIOGRAM REPORT Name: REBECCA BERMUDEZ Room: [address] ADM IN R.#: [id number] Admission: 01/30/18 Attend Phys: Neno Chavez MD Discharge: Date of : 30 Report #: [id number] THIS REPORT FOR: //name// [facility] Test Date: 2018-02-03 Test Time: 08:42:06 Pat Name: REBECCA BERMUDEZ Department: Room: [facility] Gender: M Microsoft Dynamics Manager Architect: : 1930 Requested By: Kennedy Bowden Order Number: [id number] MD: Jasbir Sanchez Measurements Intervals [place] Rate: 55 P: 72 LA: 200 QRS: -7 QRSD: 174 T: 165 QT: 484 QTc: 463 Interpretive Statements Sinus bradycardia Left bundle branch block Compared to ECG 02/02/2018 07:52:54 No significant changes Electronically Signed On 02-03-2018 12:57:18 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
--- NOTE | 2018-02-03 14:28 | NUR ---
THIS RN AGREES WITH THE ASSESSMENT BY JEF BRICENO
[2018-02-03 16:11] VITALS: BP 154/67
--- NOTE | 2018-02-03 17:24 | NUR ---
PT CURRENLTY RESTING IN BED, FAMILY AT SIDE VISITING- FERTILIZER PROCESSING SUPERVISOR IN PLACE ORDERED, TACING SB- IV NOTED TO RIGHT FA AND LEFT AC INTACT AND SL- IV ABT GIVEN THIS SHIFT PRESCIBED, NO ADVERSE REACTIONS TO NOTE- PT ENCOURAGED TO BE UP TO BED SIDE CHAIR THIS SHIFT WIH MEALS- REFUSED BREAKFAST AND LUNCH, GOOD PO INTAKE NOTED WITH DINNER- UP FOR LONG PERIOD THIS AFTERNOON TO CHAIR VISTING WITH FRIEND, TOLERATED WELL- WORKING WITH PT/OT PRESCIBED- PT NOTED TO HAVE INCONTINENT EPISODES THIS SHIFT- DENEIS ANY C/O PAIN/DISCOMFORT AT THIS TIME- CALL LIGHT AND PERSONAL BELONGINGS WITH IN REACH- ALL NEEDS MET AT THIS TIME-WCTM
[2018-02-03 20:00] VITALS: BP 133/70
[2018-02-04] VITALS: BP 120/57
--- NOTE | 2018-02-04 01:02 | NUR ---
ALERT AND ORIENTED X 4, CONT. O2 NC AT 2 LITERS. IV ABX WITHOUT ADVERSE REACTION. BED IN LOW POSITION, CALL LIGHT IN REACH, BED ALARM ON. DENIES PAIN OR DISCOMFORT. NO SIGN OF DISTRESS. CONT. WITH PLAN OF CARE.
[2018-02-04 04:00] VITALS: BP 119/66
[2018-02-04 05:11] LABS: HEMATOCRIT 31.8 % (42.0-52.0); MCH 31.6 pg (26.0-34.0); MCHC 34.6 g/dL (28.0-37.0); MCV 91.2 fL (80.0-100.0); MPV 7.9 fl. (7.2-11.1); RBC 3.49 mil/uL (4.50-6.00); RDW-CV 12.5 % (10.5-14.5); WBC 9.6 thou/uL (4.0-11.0)
[2018-02-04 05:41] LABS: CALCIUM 7.5 mg/dL (8.5-10.1); CREATININE 1.4 mg/dL (0.6-1.3); POTASSIUM 4.8 mmol/L (3.5-5.1)
[2018-02-04 07:44] VITALS: BP 136/69
--- NOTE | 2018-02-04 09:16 | NUR ---
ASSUMED CARE OF PT THIS AM AROUND 07- PREFLIGHT INSPECTOR IN PLACE ORDERED, TRACING SB WITH BBB- UPON ASSESSMENT PT NOTED TO BE RESTING IN BED- PT A&O X4, FORGETFULLNESS NOTED- CONTINENT VS INCONTINENT OF BOWEL AND BLADDER WITH STRESS INCONTINENTS NOTED-COURSE LUNG SOUNDS WITH EXPIRATORY WHEEZES NOTED- RESP EVEN AND UN-LABORED- DYSPNEA NOTED ON EXERTION- VSS, O2 SAT 96% ON 2L VIA NC-ABDOMEN SOFT/ROUND/NON-TENDER, BS HYPOACTIVE- LAST BM REPORTED X2 DAYS AGO- SCHEDULED SENNA GIVEN PRESCIBED THIS AM- IV NOTED TO LEFT AC AND RIGHT FA INTACT AND SL- PT UP TO BED SIDE CHAIR THIS AM, FAIR PO INTAKE NOTED THIS AM WITH BREAKFAST- ISOLATION IN PLACE AND MAINTAINED R/T POSITIVE FLU- PT DENIES ANY C/O PAIN/DISCOMFORT AT THIS TIME- CALL LIGHT AND PERSONAL BELONGINGS WITH IN REACH- HOURLY ROUNDS IN PLACE R/T SAFETY/NEEDS- ALL NEEDS MET AT THIS TIME-WCTM
--- NOTE | 2018-02-04 10:00 | NUR ---
This RN agrees with the assessment of SN. Sher
[2018-02-04 11:38] VITALS: BP 154/84
[2018-02-04 15:27] VITALS: BP 140/83
--- NOTE | 2018-02-04 18:05 | NUR ---
PT CURRENLTY RESTING IN BED- LITIGATION PARTNER IN PLACE ORDERED, TRACING SB/SR WITH BBB- IV TO RIGHT FA AND LEFT AC INTACT AND SL- PT UP TO CHAIR WITH MEALS THIS SHIFT, GOOD PO INTAKE NOTED- WORKING WITH THERAPIES PRESCIBED, UP WALKING HALLS- DYSPNEA NOTED- IV ABT D/C'D THIS SHIFT WITH PO AMOX/CLAV STARTED AND GIVEN THIS SHIFT PRESCIBED- RT ORDER NOTED FOR OVERNIGHT OXIMETRY- PT C/O OF SWELLING NOTED TO UPPER RIGHT GROIN REGION- LUMP NOTED WITH PALPATION WITH NO PAIN REPORTED- NOTIFED WITH ORDERS RECIVED FOR US TO BE COMPLETED- US TO AREA COMPLETED THIS SHIFT, RESULTS REPORTED TO BE UNREMARKABLE- PT DENIES ANY C/O PAIN/DISCOMFORT AT THIS TIME- CALL LIGHT AND PERSOANL BELONGINGS WITH IN REACH- ALL NEEDS MET AT THIS TIME-[facility]
[2018-02-05 00:01] VITALS: BP 127/70
[2018-02-05 04:09] VITALS: BP 115/67
--- NOTE | 2018-02-05 06:10 | NUR ---
A&O X4 CALM COOPERITVE. X1 ASSIST TO GET UP. PT O2 STUDY PT WAS ON RA ALL NIGHT. SB BBB ON THE MONITOR. NO FLUIDS. DENIES PAIN. VITALS WNL. HOURLY ROUNDING FOR SAFETY.
[2018-02-05 07:51] VITALS: BP 144/69
[2018-02-05] MEDS ORDERED: SENNA-DOCUSATE1 EACH PO (09:27)
[2018-02-05] MEDS ORDERED: PREDNISONE 10 M10 MG PO (09:27)
[2018-02-05] MEDS ORDERED: MUCINEX600 MG PO (09:27)
[2018-02-05] MEDS ORDERED: SORINE 80 MG TA80 M1 PO (09:27)
[2018-02-05] MEDS ORDERED: AUGMENTIN 875-1 EACH PO (09:27)
[2018-02-05] MEDS ORDERED: VENTOLIN HFA 1818 GM INH (09:27)
--- NOTE | 2018-02-05 09:36 | NUR ---
ASSUMED CARE OF PT THIS AM AROUND 0715- AUTO BATTERY BUILDER IN PLACE ORDERED, TRACING SB WITH BBB- UPON ASSESSMENT PT NOTED TO BE RESTING IN BED- PT A&O X3 WITH FORGETFULLNESS- CONTINENT VS INCONTINENT OF BOWEL AND BLADDER, OCCASIONAL STRESS INCONTINENT NOTED- COURSE LUNG SOUNDS, EXPIRATORY WHEEZE-COUGH NOTED- VSS, O2 SAT 935 ON RA- DYSNEA NOTED ON EXERTION- ABDOMEN FIRM/ROUND/NON-TENDER, BS X4 HYPOACTIVE- PRN MOM GIVEN THIS AM- +1 EDEMA NOTED TO BLE- PT UP TO BED SIDE CHAIR THIS AM, GOOD PO INTAKE NOTED WITH BREAKFAST- PT DENIES ANY C/O PAIN/DISCOMFORT AT THIS TIME- CALL LIGHT AND PERSOANL BELONGINGS WITH IN REACH- HOURLY ROUNDS IN PLACE R/T SAFETY/NEEDS- ALL NEEDS MET AT THIS TIME-WCTM
--- NOTE | 2018-02-05 10:05 | NUR ---
Pt discharging to home today, updated Pt's , she informed that either their dtr or son will pick Pt up and transport home. Faxed HH orders to [facility], per 's request.
[2018-02-05] MEDS ORDERED: ELIQUIS2.5 MG PO (10:23)
[2018-02-05] MEDS ORDERED: ROBITUSSIN100 MG/53 PO (10:26)
--- NOTE | 2018-02-05 13:18 | NUR ---
ORDERS RECIEVED FOR OKAY TO D/C TO HOME WITH HH PER THIS SHIFT- CM HERE TO SET HH PRIOR TO D/C- IV TO LEFT AC AND RIGHT FA D/C'D PRIOR TO D/C- VEHICLE MODIFICATION TECHNICIAN D/C'D PRIOR TO D/C- SON HERE AT TIME OF D/C- D/C EDUCATION/TEACHING/FOLLOW UPS COMMUNICATED TO SON WITH VERBAL UNDERSTANDING RECIEVED PER SON-WRITTEN SCRIPTS ALONG WITH EDUCATION PROVIED TO PT AND SON AT TIME OF D/C-ALL QUESTIONS AND CONCERNS ADDRESSED PRIOR TO D/C- BELONGINGS PACKED AND ACCOUNTED FOR PER PT AND SON- PT WITH BELONGINGS ESCORTED PER [facility] VIA W/C, SON AT SIDE TO VEHICLE AT 1320- NO PROBLEMS TO NOTE AT TIME OF D/C
== END 2018-02-05 13:20 | disposition home health service (06) | DRG 871 ==
LOC: M.ERS 04:14 → M.TBA-ER 05:01 → M.2W 05:01 → M.ICU 02-01 11:24 → M.2W 02-02 14:50
PROVIDERS: Family Medicine; Internal Medicine; ADMIT Internal Medicine
DX: A41.89 Other specified sepsis (principal); J10.00 Influenza due to other identified influenza virus with unspecified type of pneumonia; J44.1 Chronic obstructive pulmonary disease with (acute) exacerbation; I42.9 Cardiomyopathy, unspecified; I50.42 Chronic combined systolic (congestive) and diastolic (congestive) heart failure; J44.0 Chronic obstructive pulmonary disease with (acute) lower respiratory infection; R65.20 Severe sepsis without septic shock; I25.10 Atherosclerotic heart disease of native coronary artery without angina pectoris; K21.9 Gastro-esophageal reflux disease without esophagitis; I11.0 Hypertensive heart disease with heart failure; I27.20 Pulmonary hypertension, unspecified; B34.9 Viral infection, unspecified; J20.8 Acute bronchitis due to other specified organisms; Z66 Do not resuscitate; I48.91 Unspecified atrial fibrillation; I95.2 Hypotension due to drugs; K40.90 Unilateral inguinal hernia, without obstruction or gangrene, not specified as recurrent; Z90.49 Acquired absence of other specified parts of digestive tract; Z86.73 Personal history of transient ischemic attack (TIA), and cerebral infarction without residual deficits; Z79.899 Other long term (current) drug therapy; Z87.891 Personal history of nicotine dependence

== ENCOUNTER 2018-07-17 07:36 | Inpatient (IN) | payer OTHER ==
[~2018-07-17] VITALS: Ht 188 cm; Wt 93.9 kg
[~2018-07-17 07:36] MED LIST changes: +AUGMENTIN 875-1 EACH PO; +ELIQUIS2.5 MG PO; +MUCINEX600 MG PO; +ROBITUSSIN100 MG/53 PO; +SENNA-DOCUSATE1 EACH PO; +SORINE 80 MG TA80 M1 PO; +VENTOLIN HFA 1818 GM INH
[2018-07-17 07:42] VITALS: BP 138/70
[2018-07-17 08:27] LABS: ANION GAP 9 mmol/L (7-16); BUN 13 mg/dL (7-18); CALCIUM 7.9 mg/dL (8.5-10.1); CHLORIDE 100 mmol/L (98-107); CO2 26 mmol/L (21-32); CREATININE 1.4 mg/dL (0.6-1.3); GLUCOSE 108 mg/dL (70-99); POTASSIUM 3.9 mmol/L (3.5-5.1); SODIUM 135 mmol/L (136-145)
[2018-07-17 08:28] LABS: ABSOLUTE BASOPHILS 0.1 thou/uL (0.0-0.2); ABSOLUTE EOSINOPHILS 0.1 thou/uL (0.0-0.7); ABSOLUTE MONOCYTES 0.5 thou/uL (0.0-1.2); ABSOLUTE NEUTROPHILS 3.5 thou/uL (1.6-8.1); BASOPHILS 0.8 %; EOSINOPHILS 1.4 %; HEMATOCRIT 35.8 % (42.0-52.0); HEMOGLOBIN 12.2 gm/dL (14.0-18.0); INR 1.1; LYMPHOCYTES 32.3 %; MCH 30.8 pg (26.0-34.0); MCV 90.6 fL (80.0-100.0); MONOCYTES 7.6 %; MPV 7.2 fl. (7.2-11.1); NUCLEATED RBCS 0 /100WBC; PLATELET COUNT* 191 thou/uL (150-400); POLYS 57.9 %; PROTIME 10.5 Seconds (9.20-11.50); RBC 3.95 mil/uL (4.50-6.00); RDW-CV 12.9 % (10.5-14.5); WBC 6.1 thou/uL (4.0-11.0)
[2018-07-17 08:38] LABS: URINE BILIRUBIN NEGATIVE (Negative); URINE BLOOD TRACE (Negative); URINE CLARITY CLEAR; URINE COLOR YELLOW; URINE GLUCOSE-RANDOM NEGATIVE (Negative); URINE KETONES NEGATIVE (Negative); URINE LEUKOCYTES-REFLEX NEGATIVE (Negative); URINE NITRITE-REFLEX NEGATIVE (Negative); URINE PROTEIN NEGATIVE (Negative); URINE UROBILINOGEN 0.2 E.U./dl (0.2-1.0)
[2018-07-17 08:39] LABS: ALKALINE PHOSPHATASE 1542 U/L (46-116); NT-PRO BRAIN NAT PEPTIDE 273 pg/mL (<300); SGOT 27 U/L (15-37); SGPT 18 U/L (30-65); TOTAL BILIRUBIN 0.4 mg/dL (<0.1-1.0); TOTAL PROTEIN 6.7 g/dL (6.4-8.2); TROPONIN-I LEVEL <0.06 ng/mL (<0.06)
--- NOTE | 2018-07-17 11:13 | EKG ---
[place] [address] ELECTROCARDIOGRAM REPORT Name: REBECCA BERMUDEZ Room: [place] [address] ADM IN [facility]#: [id number] Admission: 07/17/18 Attend Phys: Gustavo Dixon, Discharge: Date of : 30 Report #: [id number] THIS REPORT FOR: //name// [facility] ED Test Date: 2018-07-17 Test Time: 08:02:22 Pat Name: REBECCA BERMUDEZ Department: Room: [facility] Gender: M Director Of Business Continuity: Mindi NAJERA : 1930 Requested By: Jorge A Hutchinson Order Number: [id number] MD: Jasbir Sanchez Measurements Intervals [place] Rate: 70 P: 48 ID: 154 QRS: -18 QRSD: 165 T: 125 QT: 449 QTc: 485 Interpretive Statements Sinus rhythm Left bundle branch block Compared to ECG 02/03/2018 08:42:06 Sinus bradycardia no longer present Electronically Signed On 07-17-2018 11:13:19 CDT by Jasbir Sanchez [email or web address] <ELECTRONICALLY SIGNED> By: Jasbir Sanchez MD, [facility] 07/17/18 1113 [id number] Jasbir Sanchez MD, [facility] /EPI
[2018-07-17 11:26] VITALS: BP 124/61
--- NOTE | 2018-07-17 12:01 | NUR ---
PATIENT ADMITTED FROM ER TO ROOM 114. ALERT AND ORIENTED. CACHIL DEHE. DENIES PAIN CURRENTLTY. ADMISSION HISOTRY AND ASSESSMENT CHARTED. REPORTS URINARY FREQUENCY AND DRIBBLING. UROLOGY CONSULTED DUE TO FINDINGS ON CT REPORT. FAMILY AT BEDSIDE AND AWARE OF UROLOGY CONSULT. EDUCATED ON FALL PREVENTION. CALL LIGHT WITHIN REACH. WILL CONTINUE TO MONITOR.
--- NOTE | 2018-07-17 15:20 | NUR ---
SPOKE WITH PT. INTRODUCED ROLL OF EMILY. HE IS ALERT AND ORIENTED. SOMETIMES FORGETTFUL. HE SAID HE LIVES WITH HIS ,ARMANDO. HE IS INDEPENDENT. HAS A CANE AND WALKER. WILL USE ONE OF THEM FOR MOBILITY. LATELY HAS BEEN USING WALKER HE FEELS WEAK. HE HELPS HIS AROUND THE HOUSE WHEN ABLE. HAS HAD HEALTH BACK HOME HOME HEALTH BEFORE. WOULD USE THEM AGAIN IF NEEDED. CM WILL FOLLOW. ADVANCE DIRECTIVE ON CHART. HIS SON,REBECCA, IS HIS DPOA.
--- NOTE | 2018-07-17 15:43 | NUR ---
1530- PVR=63ML URINE, NO MEMBRENO INDICATED PER ORDERS.
--- NOTE | 2018-07-17 16:08 | NUR ---
ASSUMED PATIENT CARE AT 1515. PATIENT RESTING IN BED AT THIS TIME. FAMILY AT BEDSIDE. CONTINUE TO MONITOR.
--- NOTE | 2018-07-17 17:55 | NUR ---
PATIENT ORIENTED X4. DENIES PAIN OR NAUSEA. ONCOLOLGY AND UROLOGY ON UNIT TO SEE PATIENT THIS AFTERNOON. FAMILY AT BEDSIDE. WILL CONTINUE TO MONITOR.
[2018-07-17 22:04] VITALS: BP 115/63
--- NOTE | 2018-07-18 05:54 | NUR ---
PT APPEARED TO BE RESTING QUIETLY OVERNIGHT, PT STATES HE DID NOT SLEEP WELL. CO L EYE IRRITATION, EYE FLUSHED WITH NS WITH GOOD RELIEF. LAC SL IV. UP WITH SBA TO BR TO VOID OVERNIGHT, USING URINAL ONCE ALSO. NO LABS THIS MORNING. HAD DENIED NEED FOR PAIN MED THIS SHIFT. AOX4, FORGETFUL, TALKATIVE. [place]. ABLE TO USE CALL LITE AND MAKE NEEDS KNOWN. BED ALARM ON OVERNIGHT FOR SAFETY.
[2018-07-18 08:00] VITALS: BP 128/76
--- NOTE | 2018-07-18 20:01 | NUR ---
ASSUMED CARE THIS AM, SEE ASSESSMENT FOR DETAILS, NO DISTRESS NOTED, LAYLA CT THIS SHIFT, LAYLA DIET, MEDS, CARES W/O COMPLAINT, CARE PLAN REVIEWED W/ , FAMILY, PATIENT, NO QUESTIONS VOICED, CONT POC.
[2018-07-19 03:53] LABS: MCH 31.1 pg (26.0-34.0); MCHC 34.2 g/dL (28.0-37.0); MCV 90.9 fL (80.0-100.0); MPV 7.1 fl. (7.2-11.1); RBC 3.85 mil/uL (4.50-6.00); RDW-CV 12.9 % (10.5-14.5); WBC 5.6 thou/uL (4.0-11.0)
[2018-07-19 04:14] LABS: ALBUMIN 2.9 g/dL (3.4-5.0); CALCIUM 7.8 mg/dL (8.5-10.1); CREATININE 1.3 mg/dL (0.6-1.3); POTASSIUM 3.9 mmol/L (3.5-5.1); TOTAL BILIRUBIN 0.5 mg/dL (<0.1-1.0); TOTAL PROTEIN 6.2 g/dL (6.4-8.2)
--- NOTE | 2018-07-19 05:52 | NUR ---
UP WITH STAND BY ASSIST TO BATHROOM. ALERT TO SELF BUT CONFUSED/FORGETFUL AT TIMES. DENIES PAIN OR NAUSEA. POST VOID RESIDUAL SHOWED 81NL. CALL LIGHT WITHIN REACH. BED ALARM ON.
[2018-07-19 08:00] VITALS: BP 136/81
[2018-07-19] MEDS ORDERED: SYNTHROID50 MCG PO (15:40)
[2018-07-19 15:46] VITALS: BP 136/81
[2018-07-19] MEDS ORDERED: OXYBUTYNIN 5 MG5 M2 PO (16:08)
--- NOTE | 2018-07-19 17:01 | NUR ---
ASSUMED CARE THIS AM, SEE ASSESSMENT FOR DETAILS, DISCHARGE ORDERS RECEIVED, IV ACCESS REMOVED WITHOUT INCIDENT, DISCHARGE INSTRUCTIONS, FOLLOW UP APPTS, PRESCRIPTIONS DISCUSSED WITH AND GIVEN TO PATIENT AND DAUGHTER, NO QUESTIONS VOICED, PERSONAL EFFECTS GATHERED, ACCOUNTED FOR, IN COMPANY OF PATIENT AND DAUGHTER, PATIENT TRANSPORTED VIA WHEELCHAIR TO MAIN ENTRANCE IN STABLE CONDITION, [facility] S[facility].
--- NOTE | 2018-08-13 08:05 | CON ---
[address] [address] CONSULTATION Name: LARAREBECCA Poole Room: [address]#: [id number] Admission: 07/17/18 Attend Phys: Gustavo Dixon, Discharge: 07/19/18 Date of : 30 Report #: [id number] THIS REPORT FOR: //name// CC: William Doherty Gustavo Dixon DATE OF SERVICE: 07/17/2018 UROLOGY CONSULTATION REFERRING PHYSICIAN: Dr. Dixon. REASON FOR CONSULTATION: Pelvic lymphadenopathy, sclerotic bony lesions, possible prostate cancer. HISTORY OF PRESENT ILLNESS: This is an 88-year-old male who reportedly presented to the Emergency Department due to nausea, vomiting and weakness. He reports symptoms were present for a couple days prior to admission and accompanied by epigastric pain, dizziness, constipation and shortness of breath. He is a poor historian, but reportedly has seen Dr. Xie in our office, though he is unsure why. He believes his last visit was this past spring. He does not know of any history of prostate cancer or having had a prostate biopsy. He denies dysuria, hematuria, difficulty voiding or sensation of incomplete emptying. Denies fever, chills or flank pain. Denies back pain or pelvic pain. PAST MEDICAL HISTORY: As above. Also, has a history of CHF, COPD, pneumonia and TIA. ALLERGIES: No known drug allergies. MEDICATIONS: List is reviewed. FAMILY HISTORY: He does not know of any kidney disease in the family. He has a brother with a history of prostate cancer. SOCIAL HISTORY: He quit smoking. He does not drink alcohol. REVIEW OF SYSTEMS: As per the history of present illness. Denies cough and palpitations. Denies chills. Denies blood in stool. PHYSICAL EXAMINATION: VITAL SIGNS: Temperature 36.2, pulse 77, respirations 17 and blood pressure 138/70. GENERAL: This is an 88-year-old male in no acute distress. He is awake, alert and answers questions appropriately, though he is hard of hearing. HEENT: Normocephalic, atraumatic. Extra[place] [address] CONSULTATION Name: REBECCA BERMUDEZ Room: [address]#: [id number] Admission: 07/17/18 Attend Phys: Gustavo Dixon, Discharge: 07/19/18 Date of : 30 Report #: [id number] Oropharynx is clear. NECK: Supple. RESPIRATORY: Effort and excursion are normal. CHEST WALL: Nontender. CARDIAC: Rhythm is regular. ABDOMEN: Soft, nontender and nondistended. GENITOURINARY: Bladder is nonpalpable. He has bilateral inguinal hernias, which are nontender. The skin of the penis and scrotum is normal. Testes are atrophic, with no palpable masses. No tenderness. Digital rectal exam reveals normal anus and sphincter tone. Prostate is enlarged with bilateral nodularity. MUSCULOSKELETAL: Spine and costovertebral angles are nontender. LABORATORY DATA: Laboratory studies include sodium 135, potassium 3.9, chloride 100, CO2 of 26, BUN 13, creatinine 1.4 and glucose 108. Hemoglobin 12.2, white count 6.1 and platelet count 191,000. Alkaline phosphatase is 1542. Contrast CT scan of the abdomen and pelvis reveals sclerotic bony lesions of the spine and pelvis. Also, prostate enlargement and pelvic lymphadenopathy. Postvoid residual was checked by bladder scan and is 63 mL. PSA has been drawn and is pending. PT and PTT are normal. IMPRESSION AND PLAN: Prostate nodules, elevated alkaline phosphatase, sclerotic bony lesions and pelvic lymphadenopathy. All of this is certainly concerning for prostate cancer. PSA is pending. We discussed the possible need for prostate ultrasound with biopsies for tissue diagnosis. Medical Oncology has been consulted as well. We will follow along about pending studies. We will defer evaluation of the non-urologic findings on imaging studies, such as pulmonary nodules and inguinal hernias to the primary service. <ELECTRONICALLY SIGNED> By: William Carey MD 08/13/18 0805 1753 0218William Carey MD /nt
== END 2018-07-19 17:07 | disposition home health service (06) | DRG 841 ==
LOC: M.ERS 07:36 → M.TBA-ER 09:55 → M.ORTHSURG 09:55
PROVIDERS: Emergency Medicine; ADMIT Family Medicine
DX: C77.5 Secondary and unspecified malignant neoplasm of intrapelvic lymph nodes (principal); E44.0 Moderate protein-calorie malnutrition; C61 Malignant neoplasm of prostate; K21.9 Gastro-esophageal reflux disease without esophagitis; I25.10 Atherosclerotic heart disease of native coronary artery without angina pectoris; N18.3 Chronic kidney disease, stage 3 (moderate); R59.1 Generalized enlarged lymph nodes; J44.9 Chronic obstructive pulmonary disease, unspecified; E03.9 Hypothyroidism, unspecified; E78.5 Hyperlipidemia, unspecified; D64.9 Anemia, unspecified; Z86.73 Personal history of transient ischemic attack (TIA), and cerebral infarction without residual deficits; Z87.891 Personal history of nicotine dependence; Z90.49 Acquired absence of other specified parts of digestive tract; Z79.01 Long term (current) use of anticoagulants; Z79.82 Long term (current) use of aspirin; Z79.899 Other long term (current) drug therapy; Z82.5 Family history of asthma and other chronic lower respiratory diseases

== ENCOUNTER 2018-08-04 18:08 | Emergency (ER) | payer OTHER ==
[~2018-08-04] VITALS: Ht 185.4 cm; Wt 87.5 kg
[~2018-08-04 18:08] MED LIST changes: +OXYBUTYNIN 5 MG5 M2 PO; +SYNTHROID50 MCG PO
[2018-08-04 19:04] LABS: ABSOLUTE BASOPHILS 0.1 thou/uL (0.0-0.2); ABSOLUTE EOSINOPHILS 0.1 thou/uL (0.0-0.7); ABSOLUTE LYMPHOCYTES 2.5 thou/uL (0.8-5.3); ABSOLUTE MONOCYTES 0.4 thou/uL (0.0-1.2); ABSOLUTE NEUTROPHILS 3.2 thou/uL (1.6-8.1); BASOPHILS 1.4 %; EOSINOPHILS 1.2 %; HEMOGLOBIN 12.3 gm/dL (14.0-18.0); MCHC 34.3 g/dL (28.0-37.0); MCV 90.5 fL (80.0-100.0); MONOCYTES 6.2 %; MPV 7.8 fl. (7.2-11.1); NUCLEATED RBCS 0 /100WBC; PLATELET COUNT* 211 thou/uL (150-400); POLYS 51.2 %; RBC 3.97 mil/uL (4.50-6.00); RDW-CV 13.1 % (10.5-14.5); WBC 6.3 thou/uL (4.0-11.0)
[2018-08-04 19:09] LABS: CREATININE 1.4 mg/dL (0.6-1.3); POTASSIUM 3.6 mmol/L (3.5-5.1)
[2018-08-04 19:13] LABS: APTT 29.2 Seconds (25.0-31.3); INR 1.1; PROTIME 11.4 Seconds (9.20-11.50)
[2018-08-04 19:22] LABS: ALBUMIN 3.1 g/dL (3.4-5.0); TOTAL BILIRUBIN 0.5 mg/dL (<0.1-1.0); TOTAL PROTEIN 6.8 g/dL (6.4-8.2); TROPONIN-I LEVEL 0.06 ng/mL (<0.06)
[2018-08-04 20:13] VITALS: BP 103/53
--- NOTE | 2018-08-05 13:55 | EKG ---
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 08/05/18 1355 1813 12 William Diggs MD, FACC /EPI
== END 2018-08-04 20:13 | disposition home or self-care (01) ==
LOC: M.ERS 18:08
PROVIDERS: Personal Emergency Response Attendant
DX: R07.89 Other chest pain (principal); J44.9 Chronic obstructive pulmonary disease, unspecified; I50.9 Heart failure, unspecified; K21.9 Gastro-esophageal reflux disease without esophagitis; Z90.49 Acquired absence of other specified parts of digestive tract; Z85.46 Personal history of malignant neoplasm of prostate; Z87.891 Personal history of nicotine dependence

== ENCOUNTER 2018-08-12 08:55 | Emergency (ER) | payer OTHER ==
[~2018-08-12] VITALS: Ht 188 cm; Wt 89.8 kg
[2018-08-12] MEDS ORDERED: LOPRESSOR25 PO (09:07)
[2018-08-12] MEDS ORDERED: POTASSIUM20 PO (09:08)
[2018-08-12 09:14] LABS: ABSOLUTE BASOPHILS 0.1 thou/uL (0.0-0.2); ABSOLUTE EOSINOPHILS 0.1 thou/uL (0.0-0.7); ABSOLUTE LYMPHOCYTES 3.3 thou/uL (0.8-5.3); ABSOLUTE MONOCYTES 0.4 thou/uL (0.0-1.2); ABSOLUTE NEUTROPHILS 4.1 thou/uL (1.6-8.1); BASOPHILS 0.8 %; EOSINOPHILS 1.7 %; HEMATOCRIT 34.4 % (42.0-52.0); HEMOGLOBIN 11.6 gm/dL (14.0-18.0); LYMPHOCYTES 41.2 %; MCHC 33.5 g/dL (28.0-37.0); MCV 92.6 fL (80.0-100.0); MONOCYTES 5.1 %; MPV 7.6 fl. (7.2-11.1); NUCLEATED RBCS 0 /100WBC; PLATELET COUNT* 183 thou/uL (150-400); POLYS 51.2 %; RBC 3.72 mil/uL (4.50-6.00); RDW-CV 13.6 % (10.5-14.5)
[2018-08-12 09:24] LABS: ANION GAP 13 mmol/L (7-16); APTT 26.5 Seconds (25.0-31.3); BUN 17 mg/dL (7-18); CALCIUM 7.9 mg/dL (8.5-10.1); CHLORIDE 101 mmol/L (98-107); CO2 22 mmol/L (21-32); CREATININE 1.6 mg/dL (0.6-1.3); GLUCOSE 165 mg/dL (70-99); INR 1.1; POTASSIUM 3.8 mmol/L (3.5-5.1); PROTIME 11.4 Seconds (9.20-11.50); SODIUM 136 mmol/L (136-145)
[2018-08-12 09:39] LABS: ALKALINE PHOSPHATASE 1985 U/L (46-116); NT-PRO BRAIN NAT PEPTIDE 332 pg/mL (<300); SGOT 31 U/L (15-37); SGPT 18 U/L (30-65); TOTAL BILIRUBIN 0.4 mg/dL (<0.1-1.0); TOTAL PROTEIN 6.4 g/dL (6.4-8.2); TROPONIN-I LEVEL <0.06 ng/mL (<0.06)
[2018-08-12 11:08] VITALS: BP 124/71
--- NOTE | 2018-08-12 18:54 | EKG ---
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
== END 2018-08-12 11:09 | disposition home or self-care (01) ==
LOC: M.ERS 08:55
PROVIDERS: Family Medicine
DX: R55 Syncope and collapse (principal); K21.9 Gastro-esophageal reflux disease without esophagitis; I25.10 Atherosclerotic heart disease of native coronary artery without angina pectoris; I50.9 Heart failure, unspecified; J44.9 Chronic obstructive pulmonary disease, unspecified; Z85.46 Personal history of malignant neoplasm of prostate; Z87.891 Personal history of nicotine dependence